=== PATIENT | male | born 1990 | race Caucasian/White ===

== ENCOUNTER 2016-07-15 12:13 | Emergency (ER) | payer MEDICAID ==
[~2016-07-15] VITALS: Ht 170.2 cm; Wt 73.5 kg
[2016-07-15 12:17] VITALS: Ht 170.2 cm; Wt 73.5 kg
[2016-07-15] MEDS ORDERED: IBUP800T25 PO (13:29)
[2016-07-15] MEDS ORDERED: IBUPROFEN 800 MG TAB PO ONE (13:30)
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
== END 2016-07-15 13:38 | disposition home or self-care (01) ==
LOC: FTE 12:13
DX: S40.022A Contusion of left upper arm, initial encounter (principal); S13.9XXA Sprain of joints and ligaments of unspecified parts of neck, initial encounter; S46.812A Strain of other muscles, fascia and tendons at shoulder and upper arm level, left arm, initial encounter; V49.40XA Driver injured in collision with unspecified motor vehicles in traffic accident, initial encounter
CPT/HCPCS: Z7502; Z7610; 99283